=== PATIENT | female | born 1995 | race Caucasian/White ===

== ENCOUNTER 2024-04-29 08:19 | Emergency (ER) | payer OTHER ==
[~2024-04-29] VITALS: Ht 170.2 cm; Wt 71.7 kg
[2024-04-29 08:20] VITALS: PULSE 71; RESP 18; TEMP 97.6; O2SAT 100
[2024-04-29 08:47] LABS: BASOPHILS % 0.3 % (0.0-1.0); EOSINOPHILS # (AUTO) 0.2 (0.0-0.4); EOSINOPHILS % 2.1 % (0.0-6.0); HEMOGLOBIN 11.4 g/dL (12.0-16.0); LYMPHOCYTES % 26.2 % (18.0-39.1); MEAN CORPUSCULAR HGB CONC 32.6 g/dL (31-35); MEAN CORPUSCULAR VOLUME 89.1 fL (81-99); MONOCYTES # (AUTO) 0.6 (0.2-0.8); MONOCYTES % 7.8 % (4.4-11.3); NEUTROPHILS # (AUTO) 4.7 (2.1-6.9); NEUTROPHILS % 63.3 % (38.7-80.0); PLATELET COUNT 215 x10e3/uL (140-360); RED BLOOD COUNT 3.93 x10e6/uL (3.6-5.1); RED CELL DISTRIBUTION WIDTH 11.8 % (11.7-14.4); WHITE BLOOD COUNT 7.48 x10e3/uL (4.8-10.8)
[2024-04-29 09:04] LABS: ANION GAP 12.9 mmol/L (8-16); CALCIUM 9.3 mg/dL (8.4-10.2); CREATININE, SERUM 0.8 mg/dL (0.57-1.11); POTASSIUM 3.9 mmol/L (3.5-5.1)
[2024-04-29] MEDS ORDERED: DEXTROSE 50% SYRINGE 50 ML IV ONE (09:47)
[2024-04-29] MEDS: KETOROLAC TROMETHAMINE 30 MG/ML VIAL IV STA (12:49)
== END 2024-04-29 12:55 | disposition home or self-care (01) ==
LOC: ER 08:33
DX: N93.8 Other specified abnormal uterine and vaginal bleeding (principal); R10.30 Lower abdominal pain, unspecified; F41.9 Anxiety disorder, unspecified; F31.9 Bipolar disorder, unspecified
CPT/HCPCS: 36415; 76830; 76856; 80048; 85025; 99284; J1885; J7799

== ENCOUNTER 2025-06-29 22:08 | Emergency (ER) | payer OTHER ==
[~2025-06-29] VITALS: Ht 170.2 cm; Wt 71.7 kg
[2025-06-29 22:28] VITALS: RESP 16; TEMP 98
[2025-06-29 23:08] LABS: LEUKOCYTE ESTERASE ,URINE TRACE (NEGATIVE); PROTEIN,URINE DIPSTICK NEGATIVE (NEGATIVE); URINE UROBILINOGEN 0.2 mg/dL (0.2 - 1)
[2025-06-29 23:09] LABS: AMPHETAMINES SCREEN,URINE NEGATIVE (NEGATIVE); CANNABINOIDS SCREEN,URINE POSITIVE (NEGATIVE); OPIATES SCREEN,URINE POSITIVE (NEGATIVE); PREGNANCY TEST, URINE NEGATIVE (NEGATIVE)
[2025-06-29 23:10] LABS: COCAINE SCREEN,URINE NEGATIVE (NEGATIVE); METHADONE SCREEN, URINE NEGATIVE (NEGATIVE)
[2025-06-29 23:14] LABS: BASOPHILS % 0.1 % (0.0-1.0); EOSINOPHILS % 0.5 % (0.0-6.0); LYMPHOCYTES % 11.3 % (18.0-39.1); MONOCYTES % 6.2 % (4.4-11.3); NEUTROPHILS % 81.6 % (38.7-80.0); RED CELL DISTRIBUTION WIDTH 11.8 % (11.7-14.4)
[2025-06-29 23:27] LABS: EPITHELIAL CELLS,URINE MANY /LPF; EST GLOMERULAR FILTRATION RATE 122.0 ML/MIN (>=60)
[2025-06-29] MEDS: ONDANSETRON HCL INJ 2MG/ML 2ML 2 MG/ML VIAL IV STA (23:37)
[2025-06-29] MEDS: SODIUM CHLORIDE 0.9% 1000ML 1,000 ML IV STA (23:37)
[2025-06-29] MEDS: SODIUM CHLORIDE 0.9% 1000ML 2,000 ML IV STA (23:38)
[2025-06-29] MEDS: KETOROLAC TROMETHAMINE 30 MG/ML VIAL IV STA (23:40)
[2025-06-30] MEDS ORDERED: ONDANSETRON HCL INJ 2MG/ML 2ML 2 MG/ML VIAL IV STA (02:25)
[2025-06-30] MEDS: Morphine 4mg INJECTION 4 MG/ML INJ IV STA (02:44)
[2025-06-30] MEDS ORDERED: IOPAMIDOL 370 MG/ML 100 ML INFUS..BTL INJ ONE (03:21)
[2025-06-30 04:00] VITALS: PULSE 66
[2025-06-30] MEDS ORDERED: HYDROCODON-ACE1 EA11 PO (04:33)
[2025-06-30] MEDS ORDERED: ONDANSETRON ODT4 MG PO (04:36)
[2025-06-30 04:53] VITALS: BP 119/75; PULSE 66; O2SAT 100
[2025-06-30] MEDS ORDERED: CEFDINIR300 MG PO (17:49)
[2025-06-30] MEDS ORDERED: KETOROLAC TROME10 MG PO (17:49)
== END 2025-06-30 04:49 | disposition home or self-care (01) ==
LOC: ER 22:12
DX: R11.2 Nausea with vomiting, unspecified (principal); R10.9 Unspecified abdominal pain; M54.16 Radiculopathy, lumbar region
CPT/HCPCS: 36415; 72132; 74176; 80053; 80307; 81001; 81025; 83690; 85025; 99284; J1885; J2270; J2405; J7030; Q9967

== ENCOUNTER 2025-06-30 11:53 | Emergency (ER) | payer OTHER ==
[~2025-06-30] VITALS: Ht 170.2 cm; Wt 71.7 kg
[~2025-06-30 11:53] MED LIST: HYDROCODON-ACE1 EA11 PO; ONDANSETRON ODT4 MG PO
[2025-06-30 12:08] VITALS: TEMP 98.6
[2025-06-30] MEDS ORDERED: GADOBENATE DIMEGLUMINE 1 ML IV ONE (13:00)
[2025-06-30 13:09] LABS: BASOPHILS % 0.3 % (0.0-1.0); EOSINOPHILS % 1.4 % (0.0-6.0); LYMPHOCYTES % 18.6 % (18.0-39.1); MONOCYTES % 7.2 % (4.4-11.3); NEUTROPHILS % 72.3 % (38.7-80.0); RED CELL DISTRIBUTION WIDTH 11.7 % (11.7-14.4)
[2025-06-30 13:20] LABS: EST GLOMERULAR FILTRATION RATE 122.0 ML/MIN (>=60)
[2025-06-30] MEDS: FENTANYL CITRATE/PF 100MCG/2 ML INJ IV PRN (14:18)
[2025-06-30] MEDS: ONDANSETRON HCL INJ 2MG/ML 2ML 2 MG/ML VIAL IV STA (14:18)
[2025-06-30] MEDS: KETOROLAC TROMETHAMINE 30 MG/ML VIAL IV STA (16:18)
[2025-06-30 16:34] VITALS: PULSE 63; RESP 14; O2SAT 100
[2025-06-30] MEDS ORDERED: CEFDINIR300 MG PO (17:49)
[2025-06-30] MEDS ORDERED: KETOROLAC TROME10 MG PO (17:49)
== END 2025-06-30 18:38 | disposition home or self-care (01) ==
LOC: ER 12:14
DX: M54.16 Radiculopathy, lumbar region (principal); F31.9 Bipolar disorder, unspecified; F41.9 Anxiety disorder, unspecified
CPT/HCPCS: 36415; 72158; 80053; 85025; 99284; J1885; J2405; J3010